=== PATIENT | female | born 1935 | race Caucasian/White ===

== ENCOUNTER 2022-05-13 14:20 | Observation (INO) | payer MEDICARE ==
[~2022-05-13] VITALS: Ht 157.5 cm; Wt 65.8 kg
[2022-05-13 15:17] LABS: BASOPHILS % (AUTO) 0.7 % (0.0-5.0); EOSINOPHILS % (AUTO) 2.7 % (0.0-8.0); HEMATOCRIT 29.2 % (36-48); LYMPHOCYTES % (AUTO) 25.1 % (21.0-51.0); MEAN CORPUSCULAR HEMOGLOBIN 30.7 pg (27.0-33.0); MEAN CORPUSCULAR HGB CONC 32.9 g/dL (32.0-36.0); MEAN CORPUSCULAR VOLUME 93.3 fL (79-99); MONOCYTES % (AUTO) 12.6 % (3.0-13.0); NEUTROPHILS % (AUTO) 58.2 % (40.0-77.0); PLATELET COUNT (AUTO) 248 K/uL (130-400); RED BLOOD CELL COUNT(AUTO) 3.13 MIL/uL (4.00-5.50); RED CELL DISTRIBUTION WIDTH 13.2 % (11.0-15.5); WHITE BLOOD COUNT (AUTO) 6.8 K/uL (4.8-10.8)
[2022-05-13 15:27] LABS: APPEARANCE,URINE CLEAR (CLEAR); BILIRUBIN,URINE NEGATIVE (NEGATIVE); COLOR,URINE LIGHT-YELLOW (YELLOW); GLUCOSE, URINE (UA) NEGATIVE (NEGATIVE); KETONES,URINE NEGATIVE (NEGATIVE); LEUKOCYTE ESTERASE ,URINE NEGATIVE Leu/uL (NEGATIVE); NITRATE,URINE NEGATIVE (NEGATIVE); OCCULT BLOOD,URINE MODERATE (NEGATIVE); PROTEIN,URINE NEGATIVE (NEGATIVE); UROBILINOGEN,URINE 0.2 mg/dL (0.2-1.0)
[2022-05-13 15:27] LABS: POTASSIUM 3.9 mmol/L (3.5-5.1)
[2022-05-13] MEDS ORDERED: PANTOPRAZOLE 40 MG/VIAL IVP ONE (15:30)
[2022-05-13 15:32] LABS: ALBUMIN 3.4 g/dL (3.5-5.0); TOTAL PROTEIN, SERUM 6.4 g/dL (6.0-8.3)
[2022-05-13] MEDS ORDERED: FISH1CAP27 PO (15:35)
[2022-05-13] MEDS ORDERED: HYDR12.54 PO (15:35)
[2022-05-13] MEDS ORDERED: AMLO-257 PO (15:35)
[2022-05-13] MEDS ORDERED: LISI20TA24 PO (15:35)
[2022-05-13] MEDS ORDERED: MELA5TAB14 PO (15:35)
[2022-05-13] MEDS ORDERED: NAPR220C15 PO (15:35)
[2022-05-13] MEDS ORDERED: MULT-1203 PO (15:35)
[2022-05-13] MEDS ORDERED: HYDRALAZINE 20MG/ML VIAL IV PRN (17:00)
[2022-05-13] MEDS ORDERED: ACETAMINOPHEN 325 MG TAB PO PRN (17:00)
[2022-05-13] MEDS ORDERED: ALBUTEROL INHALER 90MCG/INH IH PRN (17:00)
[2022-05-13] MEDS ORDERED: ONDANSETRON 4MG INJ IVP PRN (17:00)
[2022-05-13] MEDS ORDERED: LABETALOL 20MG SYG IV PRN (17:00)
[2022-05-13 17:10] LABS: HEMATOCRIT 28.2 % (36-48)
[2022-05-13] MEDS ORDERED: IOHEXOL 350 MG/ML 100ML INFUS..BTL IV ONE (17:21)
[2022-05-13] MEDS ORDERED: LACTATED RINGERS 1000ML 1,000 ML IV SCH (20:00)
[2022-05-13] MEDS: INSULIN HUMULIN R 100 UNIT/ML 3ML SQ SCH (21:00)
[2022-05-13] MEDS: PANTOPRAZOLE 40 MG/VIAL IVP SCH (21:31)
[2022-05-13] MEDS: SUCRALFATE 1 GM TABLET PO SCH (21:31)
[2022-05-13 22:39] VITALS: BP 144/65
[2022-05-13 23:43] LABS: HEMATOCRIT 27.5 % (36-48)
[2022-05-14 04:00] VITALS: BP 124/51
[2022-05-14 05:11] LABS: BASOPHILS % (AUTO) 0.8 % (0.0-5.0); HEMATOCRIT 28.2 % (36-48); LYMPHOCYTES % (AUTO) 28.3 % (21.0-51.0); MEAN CORPUSCULAR HEMOGLOBIN 30.2 pg (27.0-33.0); MEAN CORPUSCULAR HGB CONC 32.3 g/dL (32.0-36.0); MEAN CORPUSCULAR VOLUME 93.7 fL (79-99); MONOCYTES % (AUTO) 12.9 % (3.0-13.0); NEUTROPHILS % (AUTO) 53.2 % (40.0-77.0); PLATELET COUNT (AUTO) 222 K/uL (130-400); RED BLOOD CELL COUNT(AUTO) 3.01 MIL/uL (4.00-5.50); RED CELL DISTRIBUTION WIDTH 12.9 % (11.0-15.5); WHITE BLOOD COUNT (AUTO) 5.3 K/uL (4.8-10.8)
[2022-05-14 05:36] LABS: % IRON SATURATION 6.3 % (22-44)
[2022-05-14 05:49] LABS: CREATININE 0.9 mg/dL (0.5-1.5); PHOSPHORUS 3.2 mg/dL (2.5-4.9); POTASSIUM 4.2 mmol/L (3.5-5.1); THYROID STIMULATING HORMONE 1.56 uIU/mL (0.36-3.74)
[2022-05-14 06:12] LABS: B-TYPE NATRIURETIC PEPTIDE 121 pg/mL (0-100)
[2022-05-14] MEDS: SUCRALFATE 1 GM TABLET PO SCH ×4 (06:41→20:51)
[2022-05-14] MEDS: INSULIN HUMULIN R 100 UNIT/ML 3ML SQ SCH ×4 (06:41→20:57)
[2022-05-14 07:30] VITALS: BP 124/56
[2022-05-14] MEDS: PANTOPRAZOLE 40 MG/VIAL IVP SCH ×2 (09:23→20:52)
[2022-05-14 10:53] LABS: HEMATOCRIT 29.2 % (36-48)
[2022-05-14 11:25] VITALS: BP 139/74
[2022-05-14 15:35] VITALS: BP 108/43
[2022-05-14] MEDS: DOCUSATE SODIUM 100 MG CAP PO SCH ×2 (15:45→20:51)
[2022-05-14 16:50] LABS: HEMATOCRIT 27.8 % (36-48)
[2022-05-14 20:00] VITALS: BP 118/52
[2022-05-14] MEDS ORDERED: **HM**MELATONIN 5MG PO SCH (21:00)
[2022-05-14] MEDS: LISINOPRIL 20 MG TABLET PO SCH (21:06)
[2022-05-14 22:55] LABS: HEMATOCRIT 28.1 % (36-48)
[2022-05-15 00:15] VITALS: BP 135/71
[2022-05-15 04:00] VITALS: BP 116/57
[2022-05-15 05:15] LABS: HEMATOCRIT 29.3 % (36-48)
[2022-05-15] MEDS: INSULIN HUMULIN R 100 UNIT/ML 3ML SQ SCH ×2 (07:28→11:30)
[2022-05-15 07:35] VITALS: BP 131/73
[2022-05-15] MEDS: PANTOPRAZOLE 40 MG/VIAL IVP SCH (08:42)
[2022-05-15] MEDS: SUCRALFATE 1 GM TABLET PO SCH ×2 (08:42→11:51)
[2022-05-15] MEDS: DOCUSATE SODIUM 100 MG CAP PO SCH (08:42)
[2022-05-15] MEDS: LISINOPRIL 20 MG TABLET PO SCH (08:43)
[2022-05-15] MEDS ORDERED: FISH OIL 1000 MG/CAP PO SCH (09:00)
[2022-05-15] MEDS ORDERED: IRON SUCROSE COMPLEX 100 MG/5 ML VIAL IVP SCH (09:00)
[2022-05-15] MEDS ORDERED: HYDROCHLOROTHIAZIDE 25 MG TABLET PO SCH (09:00)
[2022-05-15] MEDS ORDERED: MULTIVITAMIN TABLET PO SCH (09:00)
[2022-05-15] MEDS ORDERED: IRON SUCROSE COMPLEX 100 MG in 0.9%NACL 50ML 50 ML IV SCH (09:00)
[2022-05-15] MEDS ORDERED: AMLODIPINE 5 MG TAB PO SCH (09:00)
[2022-05-15 10:43] LABS: HEMATOCRIT 31.1 % (36-48)
[2022-05-15 11:35] VITALS: BP 134/60
[2022-05-15] MEDS ORDERED: PANT40TA PO (14:07)
== END 2022-05-15 15:50 | disposition home or self-care (01) ==
LOC: EDH 14:20 → EDHIP 16:52 → 4AH 22:42
PROVIDERS: ADMIT Internal Medicine Critical Care Medicine; ATTEND Internal Medicine Critical Care Medicine
DX: K92.1 Melena (principal); D50.0 Iron deficiency anemia secondary to blood loss (chronic); R01.1 Cardiac murmur, unspecified; K57.30 Diverticulosis of large intestine without perforation or abscess without bleeding; H35.30 Unspecified macular degeneration; I12.9 Hypertensive chronic kidney disease with stage 1 through stage 4 chronic kidney disease, or unspecified chronic kidney disease; N18.30 Chronic kidney disease, stage 3 unspecified; M48.00 Spinal stenosis, site unspecified; G89.29 Other chronic pain; M54.9 Dorsalgia, unspecified; K44.9 Diaphragmatic hernia without obstruction or gangrene; K59.00 Constipation, unspecified; T39.395A Adverse effect of other nonsteroidal anti-inflammatory drugs [NSAID], initial encounter; Z79.1 Long term (current) use of non-steroidal anti-inflammatories (NSAID); Z90.710 Acquired absence of both cervix and uterus; Z96.642 Presence of left artificial hip joint; Z79.899 Other long term (current) drug therapy
CPT/HCPCS: 96374; 96376 ×3; 96361 ×2; 99285; 80053; 85025 ×2; 85014 ×7; 85018 ×7; 86850; 86900; 86901; 82948 ×7; 82270; 81001; 36415 ×3; 74174; 93005; 84443; 83540; 83550; 83735; 84100; 80048; 83880; 96375; G0378 ×47; C9113 ×5; Q9967; J1815; J1756

== ENCOUNTER 2022-08-29 21:03 | Emergency (ER) | payer MEDICARE ==
[~2022-08-29 21:03] MED LIST: AMLO-257 PO; FISH1CAP27 PO; HYDR12.54 PO; LISI20TA24 PO; MELA5TAB14 PO; MULT-1203 PO; PANT40TA PO
[2022-08-29] MEDS ORDERED: TETRACAINE HCL 0.5% 4 ML OPHTH SOLN OP SCH (23:00)
[2022-08-29] MEDS ORDERED: FLUORESCEIN SODIUM 1 STRIP STRIP OP SCH (23:00)
[2022-08-29 23:12] VITALS: BP 152/77
[2022-08-30] MEDS ORDERED: POLY10DR22 OP (00:56)
[2022-08-30] MEDS ORDERED: TRAM50TA4 PO (00:56)
[2022-08-30] MEDS ORDERED: TRAMADOL HCL 50 MG TABLET ONE (01:12)
[2022-08-30] MEDS ORDERED: TRAMADOL HCL 50 MG TABLET PO ONE (01:30)
== END 2022-08-30 01:23 | disposition home or self-care (01) ==
LOC: EDH 21:03
DX: H57.11 Ocular pain, right eye (principal); H01.003 Unspecified blepharitis right eye, unspecified eyelid; I10 Essential (primary) hypertension; Z79.899 Other long term (current) drug therapy; Z88.6 Allergy status to analgesic agent; Z90.49 Acquired absence of other specified parts of digestive tract